=== PATIENT | female | born 1965 | race Caucasian/White ===

== ENCOUNTER 2018-05-18 05:10 | Emergency (ER) | payer BC, OTHER ==
--- NOTE | 2018-05-18 06:10 | EDM.PDOC ---
ED HPI GENERAL MEDICAL PROBLEM - General Chief Complaint: Neurological Problem Stated Complaint: NUMBNESS ON RIGHT SIDE Time Seen by Provider: 05/18/18 06:05 Source of Information: Reports: Patient History Limitations: Reports: No Limitations - History of Present Illness INITIAL COMMENTS - FREE TEXT/NARRATIVE: Pt has numbness in the anterior portion of her rt arm which has been there for a number of weeks. Recently she has developed numbness in the front of the rt leg . Tonight she developed numbness of the entire leg. this lasted for about 1 hour. She now is back to just having numbness in the front of the leg. Tonight she also had some sort of disciomfort in the groin. She is not real uncomfortable at this point. Onset: Other ( started last nite with the leg problem. She does not feel that she has weakness in either the arm or the leg. ) Duration: Hour(s): Location: Reports: Upper Extremity, Right, Lower Extremity, Right Associated Symptoms: Reports: Other (pt also noticed a discomfort in the rt groin. ) Treatments ACCOUNTING ANALYST: Reports: Other (see below) Other Treatments ACCOUNTING ANALYST: unknown Right Groin Pain Score (Numeric/FACES): 2 - Related Data Allergies Allergy/AdvReac Type Severity Reaction Status Date / Time Sulfa (Sulfonamide Allergy Rash Verified 05/18/18 05:36 Antibiotics) Home Meds: Home Meds ALPRAZolam [Alprazolam] 0.25 mg PO ASDIRECTED 05/18/18 [History] Venlafaxine HCl [Venlafaxine ER] 37.5 mg PO DAILY 05/18/18 [History] traZODone HCl [Trazodone HCl] 50 mg PO BEDTIME 05/18/18 [History] Past Medical History - Past Health History Medical/Surgical History: Denies Medical/Surgical History Social & Family History - Family History Family Medical History: Unobtainable - Tobacco Use Smoking Status *Q: Unknown Ever Smoked - Caffeine Use Caffeine Use Comment: Will not answer - Recreational Drug Use Recreational Drug Use Frequency: Patient Refuses To Answer ED ROS GENERAL - Review of Systems Review Of Systems: See Below Constitutional: Reports: No Symptoms HEENT: Reports: No Symptoms Respiratory: Reports: No Symptoms Cardiovascular: Reports: No Symptoms Endocrine: Reports: No Symptoms GI/Abdominal: Reports: No Symptoms, Other (pt did have some discomfort in the rt groin) : Reports: No Symptoms Neurological: Reports: Numbness, Other (pt has numbness in the feront of her rt arm with no loss of strength and she has numbness in the front of the rt leg with no loss of strength) Psychiatric: Reports: No Symptoms, Anxiety ED EXAM, NEURO - Physical Exam Exam: See Below Text/Narrative:: pt arrived complaining of new numbness in the whole rt leg. She has been having numbness in the front of the leg but tonight the whole rt leg went numb and she had some discomfort in the rt groin. Exam Limited By: No Limitations General Appearance: Alert, Anxious, Other (numb in the rt arm and in the rt leg- -now just in the front of both. pupils are equal and reactive. ) Ears: Normal TMs Nose: Normal Inspection Throat/Mouth: Normal Inspection Head Exam: Atraumatic Neck: Normal Inspection, Other ( she has slight tenderness in the rt post cervical area. ) Respiratory/Chest: No Respiratory Distress Cardiovascular: Regular Rate, Rhythm GI/Abdominal: Soft, Non-Tender, Other ( She did have some discomfort in the rt groin. ) (Female) Exam: Deferred Rectal (Female) Exam: Deferred Neurological: Alert, Oriented x 3, Other (pt discribes numbness in the ant arm on the rt and in the front of her rt leg. ) Back Exam: Normal Inspection Extremities: Normal Inspection, Other (normal color and warmth, normal strength of both the rt arm and the rt leg. ) Psychiatric: Normal Affect Course - Vital Signs Last Recorded V/S: Last Vital Signs Temp 35.7 C 05/18/18 05:31 Pulse 78 05/18/18 05:40 Resp 12 05/18/18 05:31 BP 106/85 05/18/18 05:40 Pulse Ox 94 L 05/18/18 05:40 - Orders/Labs/Meds Labs: Laboratory Tests 05/18/18 05/18/18 05/18/18 Range/Units 06:07 06:07 06:07 WBC 8.9 (4.5-11.0) K/uL RBC 4.96 (3.30-5.50) M/uL Hgb 16.2 H (12.0-15.0) g/dL Hct 46.3 (36.0-48.0) % MCV 93 (80-98) fL MCH 33 H (27-31) pg MCHC 35 (32-36) % Plt Count 504 H (150-400) K/uL Neut % (Auto) 62 (36-66) % Lymph % (Auto) 27 (24-44) % [place] % (Auto) 7 H (2-6) % Eos % (Auto) 3 (2-4) % Baso % (Auto) 1 (0-1) % Sodium 146 (140-148) mmol/L Potassium 3.5 L (3.6-5.2) mmol/L Chloride 107 (100-108) mmol/L Carbon Dioxide 29 (21-32) mmol/L Anion Gap 13.5 (5.0-14.0) mmol/L BUN 5 L (7-18) mg/dL Creatinine 0.6 (0.6-1.0) mg/dL Est Cr Clr Drug Dosing 92.79 mL/min Estimated GFR (MDRD) > 60 (>60) Glucose 99 (74-106) mg/dL Calcium 8.9 (8.5-10.1) mg/dL Total Bilirubin 0.2 (0.2-1.0) mg/dL AST 24 (15-37) U/L ALT 36 (12-78) U/L Alkaline Phosphatase 75 (46-116) U/L Total Protein 7.1 (6.4-8.2) g/dL Albumin 3.8 (3.4-5.0) g/dL Globulin 3.3 (2.3-3.5) g/dL Albumin/Globulin Ratio 1.2 (1.2-2.2) Ethyl Alcohol 196 mg/dL - Re-Assessments/Exams Free Text/Narrative Re-Assessment/Exam: 05/18/18 18:22 pt had lab work that was normal except for a etoh of .199. The cat scan of the head was normal with no acute findings. She will be left in the care of Dr Barrientos. At 7am I did go back in to talk with the pt and she was snoring and sound to sleep. It was felt she would be allowed to rest and then she would be reevaluated. Her vital signs remained normal. The pt was signed out to Dr Barrientos. 05/18/18 18:29 Departure - Departure Time of Disposition: 07:40 Disposition: Against Medical Advice 07 Clinical Impression: Acute alcohol intoxication, Numbness and tingling of left arm and leg - Discharge Information Referrals: PCP,None [Primary Care Provider] - Forms: ED Department Discharge
--- NOTE | 2018-05-19 08:40 | LETTER ---
05/18/2018 Gregory Rutherford [id number] [address] [place] [address] RE: GREGORY RUTHERFORD REI : 1965 Dear Gregory: You were seen in the emergency room in the promotion specialist hours of Saturday complaining of numbness in the front portion of your right arm and in the front portion of your right leg. Earlier that evening, your entire leg had gone numb, although you did feel that there was weakness present. At this point, the strength in the arm and leg seemed to be normal. The proposal editor was normal, there was no change in color, and there was a good pulse present. Laboratory work was obtained, which has revealed a normal hemoglobin and white blood count. Your sodium was little bit on the high side, like you were mildly dehydrated. Your sodium was 146, potassium was 3.5, and we like to see potassiums at 4. The rest of your lab work looked normal. Your kidney function was excellent. Blood sugar was 99. Your alcohol level was found to be 0.196. A CAT scan of the head was obtained to rule out any sort of tumor or mass, and this proved to be negative. In evaluating this case, my next thought was that you should have an MRI of the cervical spine, looking to see if there is any nerve compression causing both the numbness in the right arm and in the right leg. We are not able to obtain an MRI on the weekends at . I did go back in to talk with you and, like I mentioned earlier in the letter, you were resting, and Dr. Barrientos, who was the doctor coming on, was going to come in and re-evaluate and then make recommendations as to how we should further work you up. If you have questions of me, feel very free to contact me. Sincerely, /[id number]
== END 2018-05-18 09:50 | disposition left against medical advice (07) ==
LOC: JP.ED 05:10
DX: F10.129 Alcohol abuse with intoxication, unspecified (principal); Y90.6 Blood alcohol level of 120-199 mg/100 ml; R20.2 Paresthesia of skin; Z88.2 Allergy status to sulfonamides
CPT/HCPCS: 36415; 70450; 80053; 85025; 99284; G0480